=== PATIENT | female | born 1985 | race Caucasian/White ===

== ENCOUNTER 2016-06-29 18:10 | Inpatient (IN) | payer BC ==
[~2016-06-29 18:10] MED LIST: IBUPROFEN800 M1 PO; IRON325 M3 PO; KEFLEX500 M4 PO; PRENATAL FORMU1 EAC2 PO; SYNTHROID25 MC1 PO; [UNRECOGNIZED DRUG - OTHER] PO
[2016-06-29] MEDS ORDERED: SYNTHROID50 MC1 PO (18:45)
[2016-06-29 20:23] LABS: BASO % 0.2 % (0-2); EOS % 0.6 % (0-7); EOSINOPHIL ABSOLUTE COUNT 0.1 tho/cmm (0.0-0.7); HCT-HEMATOCRIT 32.2 % (34.0-49.0); HGB-HEMOGLOBIN 11.2 gm/dl (12.0-15.5); IMMATURE GRANULOCYTES ABSOLUTE 0.09 tho/cmm (0-0.03); LYMPH % 28.5 % (20-45); LYMPH ABSOLUTE COUNT 2.6 tho/cmm (0.8-4.5); MCH (MEAN CORPUSCULAR HGB) 31.5 pg (28.0-32.0); MCHC MEAN CORPUSCULAR HGB CONC 34.8 % (32.0-36.0); MCV (MEAN CELL VOLUME) 90.7 fl (82.0-96.0); MEAN PLATELET VOLUME 10.5 cmc (9.4-12.4); MONO % 6.4 % (0-12); MONOCYTE ABSOLUTE COUNT 0.6 tho/cmm (0.0-1.2); NEUTROPHIL ABSOLUTE COUNT 5.7 tho/cmm (1.6-8.0); NEUTROPHIL-AUTOMATED 5.7 tho/cmm (1.6-8.0); NEUTROPHILS % 63.3 % (40-80); PLATELET COUNT 164 tho/cmm (150-450); RED BLOOD COUNT 3.55 mil/cmm (4.00-5.20); RED CELL DISTRIBUTION WIDTH 14.7 % (12.4-16.4); WHITE BLOOD COUNT 9.1 tho/cmm (4.0-10.0)
[2016-06-30 14:25] LABS: BASO % 0.1 % (0-2); EOS % 0.5 % (0-7); EOSINOPHIL ABSOLUTE COUNT 0.1 tho/cmm (0.0-0.7); HCT-HEMATOCRIT 31.4 % (34.0-49.0); HGB-HEMOGLOBIN 10.8 gm/dl (12.0-15.5); IMMATURE GRANULOCYTES ABSOLUTE 0.06 tho/cmm (0-0.03); IMMATURE GRANULOCYTES PERCENT 0.6 % (0-0.3); LYMPH % 21.3 % (20-45); MCH (MEAN CORPUSCULAR HGB) 31.3 pg (28.0-32.0); MCHC MEAN CORPUSCULAR HGB CONC 34.4 % (32.0-36.0); MEAN PLATELET VOLUME 10.1 cmc (9.4-12.4); MONO % 3.8 % (0-12); MONOCYTE ABSOLUTE COUNT 0.4 tho/cmm (0.0-1.2); NEUTROPHILS % 73.7 % (40-80); PLATELET COUNT 184 tho/cmm (150-450); RED BLOOD COUNT 3.45 mil/cmm (4.00-5.20); RED CELL DISTRIBUTION WIDTH 14.8 % (12.4-16.4); WHITE BLOOD COUNT 9.6 tho/cmm (4.0-10.0)
[2016-07-02] MEDS ORDERED: IBUPROFEN800 M1 PO (00:59)
== END 2016-07-02 11:35 | DRG 774 ==
LOC: LDR 18:10 → OBGE 06-30 03:23
PROVIDERS: Obstetrics & Gynecology; ADMIT Specialist
PROC: 10E0XZZ Delivery of Products of Conception, External Approach (ICD-10-PCS; principal; 2016-06-30)
PROC: 0KQM0ZZ Repair Perineum Muscle, Open Approach (ICD-10-PCS; 2016-06-30)
PROC: 10907ZC Drainage of Amniotic Fluid, Therapeutic from Products of Conception, Via Natural or Artificial Opening (ICD-10-PCS; 2016-06-30)
DX: O99.824 Streptococcus B carrier state complicating childbirth (principal); O98.52 Other viral diseases complicating childbirth; B25.9 Cytomegaloviral disease, unspecified; O26.86 Pruritic urticarial papules and plaques of pregnancy (PUPPP); E06.3 Autoimmune thyroiditis; O99.284 Endocrine, nutritional and metabolic diseases complicating childbirth; O70.1 Second degree perineal laceration during delivery; Z3A.39 39 weeks gestation of pregnancy; Z37.0 Single live birth; O69.81X0 Labor and delivery complicated by cord around neck, without compression, not applicable or unspecified; Z88.0 Allergy status to penicillin; Z88.2 Allergy status to sulfonamides; Z87.898 Personal history of other specified conditions
CPT/HCPCS: J1200; J2405; J2590; J3370